=== PATIENT | male | born 1985 | race Caucasian/White ===

== ENCOUNTER → 2023-02-21 08:53 | Outpatient (BNVA) | payer BC, SELFPAY | PROVIDERS: Family Provider Nurse Practitioner; PCP Nurse Practitioner; Visit Provider Nurse Practitioner Family | DX: M79.605 Pain in left leg (principal) | CPT/HCPCS: 73610 ==

== ENCOUNTER 2024-07-18 23:02 | Emergency (ER) | payer BC, SELFPAY ==
[2024-07-18 23:13] VITALS: BP 174/113; PULSE 70; RESP 16; TEMP 36.7; O2SAT 96
[2024-07-19 00:17] VITALS: BP 144/79; PULSE 69; RESP 18; O2SAT 95
--- NOTE | 2024-07-19 00:49 | XRR_ITS ---
PROCEDURE INFORMATION: Exam: XR Abdomen Exam date and time: 07/19/2024 12:54 AM Age: 39 years old Clinical indication: Abdominal pain; Localized; Left upper quadrant (luq); Additional info: Luq abd pain. TECHNIQUE: Imaging protocol: Radiologic exam of the abdomen. Views: Frontal supine view of the abdomen. 1 View. COMPARISON: No relevant prior studies available. FINDINGS: Gastrointestinal tract: Normal. No bowel dilation. Bones/joints: Unremarkable. XR/XR KUB [id number] IMPRESSION: No acute findings.
[2024-07-19 01:09] LABS: Basophils % 0.2 %; Eosinophils # 0.1 10^3/uL (0.0-0.8); Eosinophils % 0.8 %; Hematocrit 47.7 % (37-53); Lymphocytes # 2.2 10^3/uL (0.8-4.8); Lymphocytes % 19.9 %; Mean Corpuscular HGB Conc 32.5 g/dL (30-55); Mean Corpuscular Hemoglobin 28.7 pg (27-33); Mean Corpuscular Volume 88.3 fl (82-101); Mean Platelet Volume 10.7 fL (7.4-10.4); Monocytes # 0.7 10^3/uL (0.2-0.9); Neutrophils # 7.89 10^3/uL (1.8-7.7); Neutrophils % 72.8 %; Nucleated Red Blood Cells % 0 %; Platelet Count 262 10^3/cmm (157-399); Red Cell Distribution Width 12.6 % (12.1-15.1); White Blood Count 10.84 10^3/uL (3.29-11.43)
[2024-07-19 01:10] LABS: Alanine Aminotransferase 19 U/L (0-41); Albumin Level 4.3 g/dL (3.5-5.2); Alkaline Phosphatase 71 U/L (40-130); Anion Gap 14.2 (5-19); Aspartate Amino Transferase 15 U/L (0-40); Blood Urea Nitrogen 16 mg/dL (6-20); Calcium 9.4 mg/dL (8.5-10.5); Carbon Dioxide 27 mmol/L (22-29); Chloride 100 mmol/L (98-107); Globulin 2.6 g/dL (1.3-4.6); Glomerular Filtration Rate 108.8 mL/min (90-130); Glucose 112 mg/dL (65-115); Lipase 17 U/L (13-60); Osmolality Calculated 286 mOsm/kg (285-295); Potassium 4.2 mmol/L (3.5-5.1); Sodium 137 mmol/L (136-145); Total Bilirubin 0.4 mg/dL (0.15-1.2); Total Protein 6.9 g/dL (6.6-8.7)
[2024-07-19 01:22] VITALS: BP 162/89; PULSE 76; RESP 22; O2SAT 97
[2024-07-19] MEDS: sodium chloride 0.9% 1,000 ML 999 ML IV (01:22)
--- NOTE | 2024-07-19 02:15 | ED_ITS ---
HPI - Abdominal Pain 2 General: Chief Complaint: Abdominal Pain Stated Complaint: ABD Pain Time Seen by Provider: 07/19/24 00:03 Source: patient Mode of arrival: ambulatory Limitations: no limitations History of Present Illness: Left upper abdominal pain going on for couple hours maybe 4. Had just eaten. Did take a Emmalena at home. When he arrived here nurse noticed a full-body rash. Never had that before. No recent fever or chills. Last had the Emmalena for dental issue months to a year ago. Related Data Previous Rx's Medication Instructions Recorded cyclobenzaprine 5 mg tablet 5 mg PO BID PRN muscle spasm #20 02/17/23 tabs prednisone 20 mg tablet 40 mg (2 x 20 mg) PO DAILY 5 days 02/17/23 #10 tabs dicyclomine 20 mg tablet 20 mg PO BID PRN abdominal pain 07/19/24 #20 tabs ondansetron 4 mg disintegrating 4 mg PO TID PRN nausea and 07/19/24 tablet vomiting 5 days #20 tabs Allergies Allergy/AdvReac Type Severity Reaction Status Date / Time acetaminophen [From Emmalena] Allergy ALGY-Rash Verified 07/19/24 03:37 hydrocodone [From Emmalena] Allergy ALGY-Rash Verified 07/19/24 03:37 Review of Systems 2 General: Reports: 10 or more systems reviewed and unremarkable except in HPI and below PFSH ED 2 PFSH: Social History Smoking and tobacco/nicotine status: current every day tobacco/nicotine user Second hand smoke exposure: No Alcohol intake: never Substance/Drug Use: never Adopted: No Caregiver/support person: No Lives independently: No Household members: family Housing: House Marital status: Single Number of children: 2 Highest education level completed: Associate Degree: Occupational, Technical, Vocational Program service: No Current occupational status: employed Physical Exam 2 Const: COMMON NORMALS: no acute distress, average body habitus, patient oriented x3, healthy appearing, alert and well nourished GENERAL APPEARANCE: well kempt and well developed HENMT: COMMON NORMALS: normocephalic, atraumatic, external ears normal and moist oral mucous membranes HEAD & SCALP: normocephalic and atraumatic E XTERNAL EAR: Yes external ears normal Eye: COMMON NORMALS: Equal, round and reactive pupils present, EOMs intact bilaterally and conjunctivae normal CONJUNCTIVA: Yes conjunctivae normal P UPIL: Yes Equal, round and reactive pupils present Neck/C-Spine: COMMON NORMALS: full ROM, no lymphadenopathy and supple Chest: CHEST: Yes Symmetrical chest wall rise and No Surgical scars present (Chest) Resp: COMMON NORMALS: normal respiratory effort, No retractions, No use of accessory muscles and clear to auscultation bilaterally AUSCULTATION: clear to auscultation bilaterally Cardio: COMMON NORMALS: regular rate, regular rhythm, S1 normal heart sound present, S2 normal heart sound present, No gallops present (Cardio), No clicks present (Cardio), No murmurs present (Cardio) and No rub (Cardio) RATE: r egular rate RHYTHM: regular rhythm HEART SOUNDS: S1 normal heart sound present, S2 normal heart sound present and no murmurs PERIPHERAL PULSES: o ther (Radial pulses 2+ and symmetric) GI: COMMON NORMALS: Soft to palpation, non-tender and no masses INSPECTION: No abdominal distension PALPATION: Yes Soft to palpation, No Guarding due to palpation present (GI) and No Rebound tenderness present : COMMON NORMALS: Yes no CVA tenderness BLADDER/KIDNEY EXAM: Yes no CVA tenderness Back/Pelvis: COMMON NORMALS: no CVA tenderness Extremity: COMMON NORMALS: normal to inspection, full ROM, capillary refill normal and no clubbing, cyanosis or edema Neuro: COMMON NORMALS: patient oriented x3 SENSORIUM/ORIENTATION: Yes alert Psych: APPEARANCE: Yes well kempt Skin: COMMON NORMALS: no rashes or lesions noted, no wounds, turgor normal and no jaundice GENERAL SKIN EXAM: no rashes or lesions noted and turgor normal Course 2 Vital Signs: Vital signs: Vital Signs Temperature 98.1 F 07/18/24 23:13 Pulse Rate 76 07/19/24 01:22 Respiratory Rate 22 H 07/19/24 01:22 Blood Pressure 162/89 07/19/24 01:22 Pulse Oximetry 97 07/19/24 01:22 Oxygen Delivery Me thod Room Air 07/19/24 01:22 MDM - Abdominal Pain Medical Decision Making KUB unremarkable, suspect he just had some gas pain or cramping up in the left upper quadrant versus had some cramping of the colon and the splenic flexure as it has a sharp angle on his x-ray. Differential Diagnosis Likely abdominal pain, calculus of kidney, constipation, gastroenteritis and small bowel obstruction Medical Records I reviewed the patient's medical records. Lab Data I reviewed the patient's lab results. 07/19/24 00:10 07/19/24 00:10 Labs/Radiology: Laboratory Results WBC 10.84 10^3/uL (3.29-11.43) 07/19/24 00:10 RBC 5.40 10^6/uL (3.85-5.65) 07/19/24 00:10 Hgb 15.50 g/dL (11.27-16.99) 07/19/24 00:10 Hct 47.7 % (37-53) 07/19/24 00:10 MCV 88.3 fl (82-101) 07/19/24 00:10 MCH 28.7 pg (27-33) 07/19/24 00:10 MCHC 32.5 g/dL (30-55) 07/19/24 00:10 RDW 12.6 % (12.1-15.1) 07/19/24 00:10 Plt Count 262 10^3/cmm (157-399) 07/19/24 00:10 MPV 10.7 fL (7.4-10.4) H 07/19/24 00:10 Neut % (Auto) 72.8 % 07/19/24 00:10 Lymph % (Auto) 19.9 % 07/19/24 00:10 Emanuel % (Auto) 6.0 % 07/19/24 00:10 Eos % (Auto) 0.8 % 07/19/24 00:10 Baso % (Auto) 0.2 % 07/19/24 00:10 Neut # (Auto) 7.89 10^3/uL (1.8-7.7) H 07/19/24 00:10 Lymph # (Auto) 2.2 10^3/uL (0.8-4.8) 07/19/24 00:10 Emanuel # (Auto) 0.7 10^3/uL (0.2-0.9) 07/19/24 00:10 Eos # (Auto) 0.1 10^3/uL (0.0-0.8) 07/19/24 00:10 Baso # (Auto) 0.0 10^3/uL (0.0-0.1) 07/19/24 00:10 Nucleated RBC % (auto) 0 % 07/19/24 00:10 Nucleated RBCs # 0.0 /100WBC 07/19/24 00:10 Sodium 137 mmol/L (136-145) 07/19/24 00:10 Potassium 4.2 mmol/L (3.5-5.1) 07/19/24 00:10 Chloride 100 mmol/L (98-107) 07/19/24 00:10 Carbon Dioxide 27 mmol/L (22-29) 07/19/24 00:10 Anion Gap 14.2 (5-19) 07/19/24 00:10 BUN 16 mg/dL (6-20) 07/19/24 00:10 Creatinine 0.8 mg/dL (0.7-1.2) 07/19/24 00:10 GFR Calculation 108.8 mL/min (90-130) 07/19/24 00:10 Glucose 112 mg/dL (65-115) 07/19/24 00:10 Calculated Osmolality 286 mOsm/kg (285-295) 07/19/24 00:10 Calcium 9.4 mg/dL (8.5-10.5) 07/19/24 00:10 Total Bilirubin 0.4 mg/dL (0.15-1.2) 07/19/24 00:10 AST 15 U/L (0-40) 07/19/24 00:10 ALT 19 U/L (0-41) 07/19/24 00:10 Alkaline Phosphatase 71 U/L (40-130) 07/19/24 00:10 Total Protein 6.9 g/dL (6.6-8.7) 07/19/24 00:10 Albumin 4.3 g/dL (3.5-5.2) 07/19/24 00:10 Globulin 2.6 g/dL (1.3-4.6) 07/19/24 00:10 Lipase 17 U/L (13-60) 07/19/24 00:10 XR interpretation done by ED provider, pending radiology final review ED provider radiology interpretation(s): Unremarkable KUB Discharge Plan Discharge Patient Disposition: Home Clinical Impression: Abdominal pain, acute, left upper quadrant Condition: Stable Prescriptions: New ondansetron 4 mg tablet,disintegrating 4 mg PO TID PRN (Reason: nausea and vomiting) 5 Days Qty: 20 0RF dicyclomine 20 mg tablet 20 mg PO BID PRN (Reason: abdominal pain) Qty: 20 0RF No Action prednisone 20 mg tablet 40 mg PO DAILY 5 Days Qty: 10 0RF cyclobenzaprine 5 mg tablet 5 mg PO BID PRN (Reason: muscle spasm) Qty: 20 0RF Discharge Orders: Discharge ED (Routine); Ordered 07/19/24 Ordered By: Demetrius Macias Patient Instructions: Abdominal Pain (ED), Opioid Safety, Pain Management Coding Level of Care Code ED Occupational Therapist Rehab Manager for [facility]
[2024-07-19 02:45] VITALS: BP 147/84; PULSE 60; RESP 20; O2SAT 96
[2024-07-19 03:26] VITALS: BP 152/71; PULSE 63; RESP 22; O2SAT 92
[2024-07-19 03:58] VITALS: BP 154/71; PULSE 62; RESP 22; O2SAT 98
[2024-07-19 04:15] VITALS: BP 148/85; PULSE 72; RESP 23; O2SAT 98
== END 2024-07-19 04:18 | disposition home or self-care (01) ==
PROVIDERS: Emergency Provider Emergency Medicine
DX: R10.12 Left upper quadrant pain (principal); Z72.0 Tobacco use
CPT/HCPCS: 74018; 80053; 83690; 85025; 96360; 96361; 99284; J7030